=== PATIENT | female | born 1985 | race Caucasian/White ===

== ENCOUNTER 2021-03-10 04:18 | Emergency (ER) | payer MEDICAID, OTHER ==
[~2021-03-10] VITALS: Ht 154.9 cm; Wt 55.8 kg
--- NOTE | 2021-03-10 04:20 | NUR ---
Pt brought back and placed in ED4A in pos of comfort, awaiting EDMD for eval.
[2021-03-10] MEDS ORDERED: OXYC-128 PO (04:57)
[2021-03-10] MEDS ORDERED: CLIN300C3 PO ×2 (04:57)
[2021-03-10] MEDS ORDERED: OXYCODONE/APAP 5-325 MG TABLET PO ONE (05:00)
[2021-03-10] MEDS ORDERED: CLINDAMYCIN HCL 150 MG CAPSULE PO ONE (05:00)
[2021-03-10] MEDS ORDERED: CLINDAMYCIN HCL 300 MG CAPSULE ONE (05:10)
[2021-03-10] MEDS ORDERED: OXYCODONE/APAP 5-325 MG TABLET ONE (05:11)
--- NOTE | 2021-03-10 07:15 | NUR ---
Pt came back from CT and was very anxious to leave. She said she thought that it would be quick and was not expecting to wait so long. She was tired of waiting and wanted to sign out AMA. We obliged and told her that we could call her if the CT results were positive for anything, and that she didnt really need to stay.
--- NOTE | 2021-03-10 07:32 | NUR ---
Pt signed out AMA, VSS, PE WNL, pt looks good with good color and appearance. No s/sx of distess present. Pt ambulated out of dept with steady gait and without any difficulties.
[2021-03-10 08:02] VITALS: BP 113/72
== END 2021-03-10 05:05 | disposition left against medical advice (07) ==
LOC: ER 04:24
DX: M27.2 Inflammatory conditions of jaws (principal); F17.210 Nicotine dependence, cigarettes, uncomplicated
CPT/HCPCS: A4663

== ENCOUNTER 2021-07-20 23:24 | Emergency (ER) | payer OTHER ==
[~2021-07-20] VITALS: Ht 157.5 cm; Wt 52.2 kg
[~2021-07-20 23:24] MED LIST: CLIN300C3 PO; OXYC-128 PO
--- NOTE | 2021-07-20 23:24 | NUR ---
Patient is A/Ox4, NAD noted. Patient is able to walk with steady gait
--- NOTE | 2021-07-21 01:00 | NUR ---
Patient discharged to home in stable condition. Written and verbal after care instructions given. Patient verbalizes understanding of instructions. Stressed follow up or return to ER for worsening s/s. patient is a/ox4, NAD noted. Patient is accompanied by her . Patient is able to walk with steady gait
[2021-07-21 01:52] VITALS: BP 107/73
== END 2021-07-21 01:00 | disposition home or self-care (01) ==
LOC: ER 23:24
DX: M79.605 Pain in left leg (principal); M76.32 Iliotibial band syndrome, left leg
CPT/HCPCS: A4663